=== PATIENT | female | born 1980 | race Caucasian/White ===

== ENCOUNTER 2017-07-26 12:52 | Emergency (ER) | payer MEDICAID ==
[~2017-07-26] VITALS: Ht 160 cm; Wt 65.8 kg
--- NOTE | 2017-07-26 13:20 | NUR ---
AAOX3, C/O LAC TO PALM OF R HAND S/P CUT WITH A KNIVE WHILE COOKING. RR IS EVEN AND UNLABORED WITH NAD NOTED. SKIN IS WARN AND NON DIAPHORETIC. AWAITING MD FOR EVAL.
[2017-07-26] MEDS ORDERED: TDAP [DIPH/PERTUSSIS/TET] 0.5 ML VIAL IM ONE ×2 (13:30→13:32)
--- NOTE | 2017-07-26 13:33 | NUR ---
MERI, EMT AT FOR WOUND CARE.
--- NOTE | 2017-07-26 14:25 | NUR ---
Patient discharged to home in stable condition. Written and verbal after care instructions given. Patient verbalizes understanding of instruction.
[2017-07-26 14:46] VITALS: BP 120/67
== END 2017-07-26 14:30 | disposition home or self-care (01) ==
LOC: ER 12:59
DX: S61.411A Laceration without foreign body of right hand, initial encounter (principal); W26.0XXA Contact with knife, initial encounter; Y93.89 Activity, other specified; Y92.090 Kitchen in other non-institutional residence as the place of occurrence of the external cause; Y99.8 Other external cause status
CPT/HCPCS: 90471; 90715; 99283; A4606; A6403; Z7610